=== PATIENT | female | born 1970 | race Asian ===

== ENCOUNTER 2025-02-02 16:36 | Emergency (ER) | payer BC, SELFPAY ==
--- NOTE | ~2025-02-02 | CT_ITS ---
EXAMINATION: CT brain wo con DATE: 02/02/2025 18:03 INDICATION: headache and vertigo . TECHNIQUE: Computed tomography (CT) of the head was performed without intravenous contrast. The mA wa s adjusted according to patient size. Iterative reconstruction technique was employed. The dose-lengt h product was 605.33 mGy-cm. COMPARISON: None. FINDINGS: No acute intracranial hemorrhage or extra-axial fluid collection. No hydrocephalus, mass, or herniation. No acute ischemic infarct. Unremarkable dural venous sinus attenuation. No acute osseous abnormality. The aerated spaces are clear. IMPRESSION: No acute intracranial process. Reviewed, dictated and finalized at location K.
[2025-02-02 16:41] VITALS: BP 135/86; PULSE 72; RESP 16; TEMP 36.6; O2SAT 100
[2025-02-02 16:59] VITALS: BP 119/81; PULSE 59; RESP 17; TEMP 36.4; O2SAT 98
[2025-02-02 17:02] VITALS: PULSE 65
--- NOTE | 2025-02-02 17:05 | ECG_ITS ---
Test Date: 2025-02-02 17:27:17 Measurements Intervals [place] Rate: 55 P: 31 VT: 150 QRS: 12 QRSD: 90 T: 11 QT: 404 QTc: 389 Interpretive Statements SINUS BRADYCARDIA No previous ECG available for comparison Electronically Signed On 02-03-2025 10:49:24 CDT by Moe Casillas M.D.
[2025-02-02 17:14] LABS: Hematocrit 42.4 % (37.0-47.0); Hemoglobin 14.2 g/dL (12.0-15.0); Immature Granulocyte Percent A 0.3 % (0-0.5); Lymphocytes Absolute Auto 1.95 K/mm3 (0.9-3.2); Mean Corpuscular HGB Conc 33.5 g/dl (32-36); Mean Corpuscular Hemoglobin 31.8 pg (26-34); Mean Corpuscular Volume 95.1 fl (80-100); Nucleated Red Blood Cells Absolute Auto 0.000 K/mm3 (0.0-0.012); Nucleated Red Blood Cells Perc 0.0 % (0.0-0.2); Platelet Count Result 257 k/mm3 (150-375); Red Blood Count 4.46 M/mm3 (4.2-5.4); White Blood Count 6.8 K/mm3 (4.5-10.0)
[2025-02-02 17:22] LABS: Alanine Aminotransferase 17 U/L (6-35); Albumin Level 4.6 g/dL (3.5-5.1); Alkaline Phosphatase 66 U/L (38-126); Anion Gap 8 mmol/L (4-12); Aspartate Amino Transferase 30 U/L (14-36); Bilirubin,Total 0.4 mg/dL (0.2-1.3); Blood Urea Nitrogen 12 mg/dL (7-17); Calcium 9.5 mg/dL (8.4-10.2); Carbon Dioxide 24 mmol/L (22-30); Chloride 103 mmol/L (98-107); Estimated CRCL calculation 66 ml/min; Estimated Glomerular Filt Rate > 60; Glucose 115 mg/dL (65-110); Potassium 3.8 mmol/L (3.4-5.0); Sodium 135 mmol/L (137-145); Total Protein 8.8 g/dL (6.3-8.2)
--- OUTSIDE RECORDS SUMMARY | 2025-02-02 17:24 | XMS_ITS | Clinical Summary ---
Author Organization [facility] [address] [address] Care Team Providers Care Avian Keeper Name Role Phone Unknown, Notinfile Primary Care Provider Unavail able Allergies Active Allergy Reactions Criticality Noted Date Comments Triamcinolone Acetonide Rash Medium 11/09/2021 Medications cyclobenzaprine (FLEXERIL) 5 mg tabletIndications :Cervical radiculopathy Take 1 tablet (5 mg total) by mouth 3 (three) times a day as needed for muscle spasms for up to 5 days 15 tablet Active Additional Information Patient not taking.Reported on 02/01/2025 Active Problems No known active problems Encounters Date Type Department Care Team Description 02/01/2025 3:00 PM CDT Office Visit [facility] Care at [address] [address] Isamar Petit NP Dizziness (Primary Dx); Pressure in head from Last 3 Months Social History Tobacco Use Types Packs/Day Years Used Date Smoking Tobacco: Never Assessed Comments Unknown Sex and Gender Information Value Date Recorded Sex Assigned at Not on file 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 Gender Identity Not on file Sexual Orientation Not on file Obstetrics History Last Filed Vital Signs Vital Sign Reading Time Taken Comments Blood Pressure 117/79 02/01/2025 2:49 PM CDT Pulse 74 02/01/2025 2:49 PM CDT Temperature 36.3 C (97.4 F) 02/01/2025 2:49 PM CDT Respiratory Rate 12 02/01/2025 2:49 PM CDT Oxygen Saturation 97% 02/01/2025 2:49 PM CDT Inhaled Oxygen Concentration - - Weight 62.6 kg (138 lb) 02/01/2025 2:49 PM CDT Height - - Body Mass Index - - Plan of Treatment Health Maintenance Due Date Last Done Comments Breast Cancer Screening-Mammogram 1968 Cervical Cancer Screening 1968 Colon Cancer Screening-Colonoscopy 1968 Depression Screening 1968 Hepatitis C Screening 1968 Hepatitis B Screening 1986 Regular Well Visit/Exam 18-64 1986 Influenza Vaccine (#1) 2025 , 04/28/2023, 05/20/2022, Additional history exists DTaP/Tdap/Td Vaccine (3 - Td or Tdap) 04/18/2029 04/18/2019, 02/23/2009 Zoster Vaccine Completed 02/18/2019, 11/14, 03/24/2016 Covid-19 Vaccine Completed 04/15/2024, , 04/03/2022, Additional history exists Pneumococcal vaccine <65 Aged Out No longer eligible based on patient's age to complete this topic Insurance [facility] ACCESS CHOICE Care Teams Avian Keeper Relationship Specialty Start Date End Date Unknown, Notinfile PCP - General 09/13/24
--- OUTSIDE RECORDS SUMMARY | 2025-02-02 17:25 | XMS_ITS | Encounter Summary ---
Author Organization [facility] Healthcare Address [address] [place] [id number] Care Team Providers Care Production Inspector Name Role Phone Unknown, Notinfile Primary Care Provider Unavail able Reason for Referral * Consultation (Urgent) - Pending Review Specialty Diagnoses / Procedures Referred By Pascale padilla Referred To Contact Family Medicine Diagnoses Dizziness Pressure in head Isamar Petit NP [address] [place] [address] [address] [place] [address] Phone: tel: fax: [facility] Referral ID Status Reason Start Date Expiration Date Visits Requested Visits Authorized [id number] Pending Review Specialty Services Required 02/01/2025 03/03/2026 1 1 Question Answer Please select the performing region: [facility] [[id number]] # of visits: 1 Reason for Visit * Reason Comments Dizziness Encounter Details Date Type Department Care Team (Late Contact Info) Description 02/01/2025 3:00 PM CDT Office Visit [facility] Medical [facility]venient Care at [address] [address] Isamar Petit NP [address] [address] Dizziness (Primary Dx); Pressure in head Social History Tobacco Use Types Packs/Day Years Used Date Smoking Tobacco: Never Assessed Comments Unknown Sex and Gender Information Value Date Recorded Sex Assigned at Not on file 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 Gender Identity Not on file Sexual Orientation Not on file documented as of this encounter Last Filed Vital Signs Vital Sign Reading [...] - - Body Mass Index - - documented in this encounter Plan of Treatment Scheduled Referrals Name Type Priority Associated Diagnoses Order Schedule Ambulatory referral to Family Practice Outpatient Referral Urgent Dizziness Pressure in head 1 Occurrences starting 02/01/2025 until 02/01/2026 documented as of this encounter Visit Diagnoses Diagnosis Dizziness- Primary Dizziness and giddiness Pressure in head documented in this encounter Care Teams Production Inspector Relationship Specialty Start Date End Date Unknown, Notinfile PCP - General 09/13/24 documented as of this encounter
--- OUTSIDE RECORDS SUMMARY | 2025-02-02 17:25 | XMS_ITS | Clinical Summary ---
Author Organization [facility] Health Address [address] [place] [address] Care Team Providers Care Buffer Inflated Pad Name Role Phone Unavailable Primary Care Provider Unavailabl e Social History Tobacco Use Types Packs/Day Years Used Date Smoking Tobacco: Never Assessed Comments Unknown Sex and Gender Information Value Date Recorded Sex Assigned at Not on file Legal Sex Unknown 08/08/2019 9:50 AM PST Gender Identity Not on file Sexual Orientation Not on file Plan of Treatment Not on file
--- OUTSIDE RECORDS SUMMARY | 2025-02-02 17:25 | XMS_ITS | Referral Summary ---
Author Organization [facility] [address] [place] Address [address] [place] [address] Care Team Providers Care Ocean Rescue Lieutenant Name Role Phone Unknown, Notinfile Primary Care Provider Unavail able Encounters Date Type Department Care Team Description 02/01/2025 3:00 PM CDT Office Visit [facility] Convenient Care at [address] [address] Isamar Petit NP Dizziness (Primary Dx); Pressure in head from Last 3 Months Allergies Active Allergy Reactions Criticality Noted Date Comments Triamcinolone Acetonide Rash Medium 11/09/2021 Medications cyclobenzaprine (FLEXERIL) 5 mg tabletIndications :Cervical radiculopathy Take 1 tablet (5 mg total) by mouth 3 (three) times a day as needed for muscle spasms for up to 5 days 15 tablet Active Additional Information Patient not taking.Reported on 02/01/2025 Active Problems No known active problems Social History Tobacco Use Types Packs/Day Years Used Date Smoking Tobacco: Never Assessed Comments Unknown Sex and Gender Information Value Date Recorded Sex Assigned at Not on file 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
--- OUTSIDE RECORDS SUMMARY | 2025-02-02 17:25 | XMS_ITS | Encounter Summary ---
Author Organization [facility] Health Address [address] [place] [address] Care Team Providers Care Polishing Pad Mounter Name Role Phone Unavailable Primary Care Provider Unavailabl e Prior Encounters Date Type Department Care Team Description 08/05/2019 Converted 13x Documents [facility] [place] [facility] [address] [address], [facility] [address] [place] [address] <No scans attached> 08/05/2019 Converted CPS Chart Documents [facility] [address] [place] [phone] <No scans attached> 08/05/2019 Converted CPS Chart Documents [place] [facility] [id number] [facility], [facility] [address] [place] [address] <No scans attached> 08/05/2019 Converted 13x Documents [facility] [address], [address] [place] [phone] <No scans attached> 08/05/2019 Converted 13x Documents [facility] [address] [facility], [facility] [address] [place] [address] <No scans attached> Plan of Treatment Not on file Procedures Procedure Name Priority Date/Time Associated Diagnosis Comments CANCELLED APPOINTMENT Routine 12/05/2017 12:00 AM PDT CANCELLED APPOINTMENT Routine 12/05/2017 12:00 AM PDT BITEWING - SINGLE RADIOGRAPHIC IMAGE Routine 07/24/2017 12:00 AM PST 18 RECEMENT CROWN Routine 07/18/2017 12: 00 AM PST 18 LIMITED ORAL EVALUATION - PROBLEM FOCUSED Routine 07/18/2017 12:00 AM PST PERIO MAINTENANCE Routine 06/12/2017 12: 00 AM PST 1 FM IRR W/PERIO MAINT Routine 7 12:00 AM PST PERIODIC ORAL EVALUATION - ESTABLISHED PATIENT Routine 06/06/2017 12:00 AM PST BITEWINGS - FOUR RADIOGRAPHIC IMAGES Routine 06/06/2017 12:00 AM PST ADDITIONAL X-RAY Routine 06/06/2017 12:0 0 AM PST ADDITIONAL X-RAY Routine 06/06/2017 12:0 0 AM PST ADDITIONAL X-RAY Routine 06/06/2017 12:0 0 AM PST ADDITIONAL X-RAY Routine 06/06/2017 12:0 0 AM PST ADDITIONAL X-RAY Routine 06/06/2017 12:0 0 AM PST SINGLE X-RAY Routine 06/06/2017 12:00 AM PST PERIO MAINTENANCE Routine 10/28/2016 12: 00 AM PDT ORAL HYGIENE INSTRUCTIONS Routine 2016 12:00 AM PDT 1 FM IRR W/PERIO MAINT Routine 7 12:00 AM PDT PERIODIC ORAL EVALUATION - ESTABLISHED PATIENT Routine 10/28/2016 12:00 AM PDT BITEWINGS - FOUR RADIOGRAPHIC IMAGES Routine 10/28/2016 12:00 AM PDT ADDITIONAL X-RAY Routine 10/28/2016 12:0 0 AM PDT ADDITIONAL X-RAY Routine 10/28/2016 12:0 0 AM PDT ADDITIONAL X-RAY Routine 10/28/2016 12:0 0 AM PDT ADDITIONAL X-RAY Routine 10/28/2016 12:0 0 AM PDT ADDITIONAL X-RAY Routine 10/28/2016 12:0 0 AM PDT SINGLE X-RAY Routine 10/28/2016 12:00 AM PDT BITEWINGS - FOUR RADIOGRAPHIC IMAGES Routine 06/17/2016 12:00 AM PST ADDITIONAL X-RAY Routine 06/17/2016 12:0 0 AM PST ADDITIONAL X-RAY Routine 06/17/2016 12:0 0 AM PST ADDITIONAL X-RAY Routine 06/17/2016 12:0 0 AM PST ADDITIONAL X-RAY Routine 06/17/2016 12:0 0 AM PST SINGLE X-RAY Routine 06/17/2016 12:00 AM PST INTRAORAL PHOTO Routine 06/17/2016 12:00 AM PST INTRAORAL PHOTO Routine 06/17/2016 12:00 AM PST 19 RECEMENT CROWN Routine 06/03/2016 12: 00 AM PST SINGLE X-RAY Routine 06/03/2016 12:00 AM PST 19 CEMENT CROWN Routine 05/31/2016 12:00 AM PST 19 CORE BUILDUP, INCLUDING ANY PINS WHEN REQUIRED Routine 05/13/2016 12:00 AM PDT 19 [facility] MADE CROWN POST Routine 05/13/2016 12:00 AM PDT PERIO MAINTENANCE Routine 04/19/2016 12: 00 AM PDT ORAL HYGIENE INSTRUCTIONS Routine 2015 12:00 AM PDT 1 FRANCISCO JAVIER DECON Routine 04/19/2016 12:00 AM PDT 1 FM IRR W/PERIO MAINT Routine 6 12:00 AM PDT PERIODIC ORAL EVALUATION - ESTABLISHED PATIENT Routine 04/12/2016 12:00 AM PDT PERIODIC ORAL EVALUATION - ESTABLISHED PATIENT Routine 06/30/2015 12:00 AM PST BITEWINGS - FOUR RADIOGRAPHIC IMAGES Routine 06/30/2015 12:00 AM PST ADDITIONAL X-RAY Routine 06/30/2015 12:0 0 AM PST ADDITIONAL X-RAY Routine 06/30/2015 12:0 0 AM PST ADDITIONAL X-RAY Routine 06/30/2015 12:0 0 AM PST ADDITIONAL X-RAY Routine 06/30/2015 12:0 0 AM PST ADDITIONAL X-RAY Routine 06/30/2015 12:0 0 AM PST SINGLE X-RAY Routine 06/30/2015 12:00 AM PST PERIO MAINTENANCE Routine 05/13/2015 12: 00 AM PDT ORAL HYGIENE INSTRUCTIONS Routine 2014 12:00 AM PDT 1 FM IRR W/PERIO MAINT Routine 5 12:00 AM PDT UR PERIODONTAL SCALING AND ROOT PLANING - FOUR OR MORE TEETH PER QUADRANT Routine 12/17/2014 12:00 AM PDT UL PERIODONTAL SCALING AND ROOT PLANING - FOUR OR MORE TEETH PER QUADRANT Routine 12/17/2014 12:00 AM PDT LR PERIODONTAL SCALING AND ROOT PLANING - FOUR OR MORE TEETH PER QUADRANT Routine 12/17/2014 12:00 AM PDT LL PERIODONTAL SCALING AND ROOT PLANING - FOUR OR MORE TEETH PER QUADRANT Routine 12/17/2014 12:00 AM PDT ORAL HYGIENE INSTRUCTIONS Routine 2014 12:00 AM PDT LR FRANCISCO JAVIER DECON/QD Routine 12/17/2014 12:00 AM PDT LL FRANCISCO JAVIER DECON/QD Routine 12/17/2014 12:00 AM PDT UL FRANCISCO JAVIER DECON/QD Routine 12/17/2014 12:00 AM PDT UR FRANCISCO JAVIER DECON/QD Routine 12/17/2014 12:00 AM PDT UR ANTIBACT IRR/QUAD Routine 12/17/2014 12:00 AM PDT UL ANTIBACT IRR/QUAD Routine 12/17/2014 12:00 AM PDT LR ANTIBACT IRR/QUAD Routine 12/17/2014 12:00 AM PDT LL ANTIBACT IRR/QUAD Routine 12/17/2014 12:00 AM PDT 31 CROWN - FULL CAST PREDOMINANTLY BASE METAL Routine 12/16/2014 12:00 AM PDT 30 CROWN - FULL CAST PREDOMINANTLY BASE METAL Routine 12/16/2014 12:00 AM PDT 3 O AMALGAM 1 SURFACE Routine 12/16/2014 12:00 AM PDT 18 [facility] MADE CROWN POST Routine 12/16/2014 12:00 AM PDT 15 [facility] MADE CROWN POST Routine 12/16/2014 12:00 AM PDT 14 [facility] MADE CROWN POST Routine 12/16/2014 12:00 AM PDT 2 [facility] MADE CROWN POST Routine 12/16/2014 12:00 AM PDT 30 ENDODONTIC THERAPY, MOLAR TOOTH (EXCLUDING FINAL CAODAISM) Routine 12/16/2014 12:00 AM PDT 31 CERECFIRED CROWNPOST Routine 12/17/19 15 12:00 AM PDT 30 CERECFIRED CROWNPOST Routine 12/17/19 15 12:00 AM PDT 31 CEREC CROWN POST Routine 12/16/2014 1 2:00 AM PDT 30 CEREC CROWN POST Routine 12/16/2014 1 2:00 AM PDT 31 CROWN PFG POST Routine 12/16/2014 12: 00 AM PDT 30 CROWN PFG POST Routine 12/16/2014 12: 00 AM PDT 31 CROWN PFM POST Routine 12/16/2014 12: 00 AM PDT 30 CROWN PFM POST Routine 12/16/2014 12: 00 AM PDT INTRAORAL - COMPREHENSIVE SERIES OF RADIOGRAPHIC IMAGES Routine 12/16/2014 12:00 AM PDT INTRAORAL PHOTO Routine 12/16/2014 12:00 AM PDT INTRAORAL PHOTO Routine 12/16/2014 12:00 AM PDT INTRAORAL PHOTO Routine 12/16/2014 12:00 AM PDT INTRAORAL PHOTO Routine 12/16/2014 12:00 AM PDT 31 CEMENT CROWN Routine 06/22/2012 12:00 AM PST 30 CEMENT CROWN Routine 06/22/2012 12:00 AM PST ORAL HYGIENE INSTRUCTIONS Routine 2011 12:00 AM PST PROPHYLAXIS - ADULT Routine 06/22/2012 1 2:00 AM PST NC X-RAY Routine 06/22/2012 12:00 AM PST 31 CERECFIRED CROWNPOST Routine 06/19/20 12 12:00 AM PST 30 CERECFIRED CROWNPOST Routine 06/19/20 12 12:00 AM PST CANCELLED APPOINTMENT Routine 02/22/2012 12:00 AM PDT CANCELLED APPOINTMENT Routine 09/07/2011 12:00 AM PST OCCLUSAL GUARD SOFT APPLIANCE, FULL ARCH Routine 06/30/2011 12:00 AM PST PROPHYLAXIS - ADULT Routine 06/30/2011 1 2:00 AM PST PERIODIC ORAL EVALUATION - ESTABLISHED PATIENT Routine 06/30/2011 12:00 AM PST PROPHYLAXIS - ADULT Routine 12/08/2010 1 2:00 AM PDT PERIODIC ORAL EVALUATION - ESTABLISHED PATIENT Routine 12/08/2010 12:00 AM PDT BITEWINGS - FOUR RADIOGRAPHIC IMAGES Routine 12/08/2010 12:00 AM PDT ADDITIONAL X-RAY Routine 12/08/2010 12:0 0 AM PDT ADDITIONAL X-RAY Routine 12/08/2010 12:0 0 AM PDT ADDITIONAL X-RAY Routine 12/08/2010 12:0 0 AM PDT SINGLE X-RAY Routine 12/08/2010 12:00 AM PDT INTRAORAL PHOTO Routine 12/08/2010 12:00 AM PDT PLAN VISIT FEE Routine 12/03/2010 12:00 AM PDT NC X-RAY Routine 10/27/2010 12:00 AM PDT 18 CEMENT CROWN Routine 10/27/2010 12:00 AM PDT 15 CEMENT CROWN Routine 10/27/2010 12:00 AM PDT 14 CEMENT CROWN Routine 10/27/2010 12:00 AM PDT 2 CEMENT CROWN Routine 10/27/2010 12:00 AM PDT BITEWINGS - TWO RADIOGRAPHIC IMAGES Routine 10/27/2010 12:00 AM PDT 18 ZIR[facility] LAB MADE CROWN POST Routine 10/08/2010 12:00 AM PDT 15 ZIR[facility] LAB MADE CROWN POST Routine 10/08/2010 12:00 AM PDT 14 [facility] MADE CROWN POST Routine 10/08/2010 12:00 AM PDT 2 [facility] MADE CROWN POST Routine 10/08/2010 12:00 AM PDT 19 O COMPOSITE FILLING Routine 1 12:00 AM PDT PROPHYLAXIS - ADULT Routine 03/17/2010 1 2:00 AM PDT PERIODIC ORAL EVALUATION - ESTABLISHED PATIENT Routine 03/17/2010 12:00 AM PDT BITEWINGS - FOUR RADIOGRAPHIC IMAGES Routine 03/17/2010 12:00 AM PDT ADDITIONAL X-RAY Routine 03/17/2010 12:0 0 AM PDT ADDITIONAL X-RAY Routine 03/17/2010 12:0 0 AM PDT ADDITIONAL X-RAY Routine 03/17/2010 12:0 0 AM PDT ADDITIONAL X-RAY Routine 03/17/2010 12:0 0 AM PDT ADDITIONAL X-RAY Routine 03/17/2010 12:0 0 AM PDT SINGLE X-RAY Routine 03/17/2010 12:00 AM PDT 19 O AMALGAM 1 SURFACE Routine 12:00 AM PST 3 O AMALGAM 1 SURFACE Routine 06/04/2009 12:00 AM PST 2 O AMALGAM 1 SURFACE Routine 06/04/2009 12:00 AM PST 30 ENDODONTIC THERAPY, MOLAR TOOTH (EXCLUDING FINAL CAODAISM) Routine 06/04/2009 12:00 AM PST 31 CROWN PFM POST Routine 06/04/2009 12: 00 AM PST 30 CROWN PFM POST Routine 06/04/2009 12: 00 AM PST 18 CROWN PFM POST Routine 06/04/2009 12: 00 AM PST 14 CROWN PFM POST Routine 06/04/2009 12: 00 AM PST COMPREHENSIVE ORAL EVALUATION - NEW OR ESTABLISHED PATIENT Routine 06/04/2009 12:00 AM PST UR PERIODONTAL SCALING AND ROOT PLANING - FOUR OR MORE TEETH PER QUADRANT Routine 06/04/2009 12:00 AM PST UL PERIODONTAL SCALING AND ROOT PLANING - FOUR OR MORE TEETH PER QUADRANT Routine 06/04/2009 12:00 AM PST LR PERIODONTAL SCALING AND ROOT PLANING - FOUR OR MORE TEETH PER QUADRANT Routine 06/04/2009 12:00 AM PST LL PERIODONTAL SCALING AND ROOT PLANING - FOUR OR MORE TEETH PER QUADRANT Routine 06/04/2009 12:00 AM PST 30 M ARESTIN Routine 06/04/2009 12:00 AM PST 14 D ARESTIN Routine 06/04/2009 12:00 AM PST 12 D ARESTIN Routine 06/04/2009 12:00 AM PST 3 M ARESTIN Routine 06/04/2009 12:00 AM PST UR ANTIBACT IRR/QUAD Routine 06/04/2009 12:00 AM PST UL ANTIBACT IRR/QUAD Routine 06/04/2009 12:00 AM PST LR ANTIBACT IRR/QUAD Routine 06/04/2009 12:00 AM PST LL ANTIBACT IRR/QUAD Routine 06/04/2009 12:00 AM PST INTRAORAL - COMPREHENSIVE SERIES OF RADIOGRAPHIC IMAGES Routine 06/04/2009 12:00 AM PST INTRAORAL PHOTO Routine 06/04/2009 12:00 AM PST INTRAORAL PHOTO Routine 06/04/2009 12:00 AM PST INTRAORAL PHOTO Routine 06/04/2009 12:00 AM PST INTRAORAL PHOTO Routine 06/04/2009 12:00 AM PST 15 LO COMPOSITE FILLING Routine 06/04/20 12:00 AM PST MISSED APPOINTMENT Routine 05/04/2009 12 :00 AM PDT Visit Diagnoses Not on file
--- NOTE | 2025-02-02 17:46 | ED_ITS ---
HPI - General Adult General Chief complaint: Dizziness Stated complaint: Dizziness,SANTANA Time Seen by Provider: 02/02/25 16:54 History of Present Illness HPI narrative: 54-year-old female presents to the emergency department for evaluation dizziness over last 24 hours. Patient reports the dizziness is worsened when she is up and moving. Patient denies any falls or injuries. Patient denies any coughs colds fevers or sinus congestion. Patient does have so she did headache. Patient is training for a marathon and has been running approximately 12 miles a day. Patient is not on any blood thinners. Related Data Allergies Allergy/AdvReac Type Severity Reaction Status Date / Time triamcinolone (From [facility]) Allergy Rash Verified 02/02/25 17:04 Review of Systems 2 Review of Systems: All systems reviewed & are unremarkable except as noted in HPI and below Exam 2 Narrative: APPEARANCE: Well appearing, no pain, no distress, well-nourished. HEAD: normocephalic, atraumatic. EYES: PERRLA/EOMI, conjunctivae clear. NOSE: Normal no drainage EARS: Left TM erythema THROAT: Pharynx clear, no exudate. NECK: Supple. No adenopathy, no masses. RESPIRATORY: Airway patent, respirations nonlabored. Clear to auscultation bilaterally, no rales, rhonchi, wheezing. CARDIOVASCULAR: Regular rate and rhythm without murmurs rubs or gallops. ABDOMINAL: Soft, nontender, nondistended, normal bowel sounds MUSCULOSKELETAL: Moves all extremities. Strength/ROM intact, No edema, No calf tenderness. NEURO: Alert. Cranial nerves II through XII intact. Good gait. Good coordination SKIN: Warm, dry. Normal Color Course Vital Signs Vital signs: Vital Signs Temperature 97.9 F 02/02/25 16:41 Pulse Rate 72 02/02/25 16:41 Respiratory Rate 16 02/02/25 16:41 Blood Pressure 135/86 02/02/25 16:41 Pulse Oximetry 100 02/02/25 16:41 Oxygen Delivery Room Air 02/02/25 16:41 Temperature 97.6 F 02/02/25 16:59 Pulse Rate 67 02/02/25 18:36 Respiratory Rate 16 02/02/25 18:36 Blood Pressure 118/79 02/02/25 18:36 Pulse Oximetry 100 02/02/25 18:36 Oxygen Delivery Room Air 02/02/25 16:59 Medical Decision Making MDM Narrative Medical decision making narrative: 54-year-old female presents emergency department for evaluation for vertigo. Patient did feel improved with treatment with IV fluids, Compazine, Toradol, meclizine. Patient's head CT was negative. Suspect vertigo secondary to left TM effusion. Patient was provided meclizine for symptom control. Patient was encouraged close follow-up with her primary care physician. Differential Diagnosis Differential Diagnosis: Vertigo, cervical abdominal, subarachnoid hemorrhage, vascular injury, otitis media Vital Signs Vital Signs: Vital Signs Temperature 97.9 F 02/02/25 16:41 Pulse Rate 72 02/02/25 16:41 Respiratory Rate 16 02/02/25 16:41 Blood Pressure 135/86 02/02/25 16:41 Pulse Oximetry 100 02/02/25 16:41 Oxygen Delivery Room Air 02/02/25 16:41 Temperature 97.6 F 02/02/25 16:59 Pulse Rate 67 02/02/25 18:36 Respiratory Rate 16 02/02/25 18:36 Blood Pressure 118/79 02/02/25 18:36 Pulse Oximetry 100 02/02/25 18:36 Oxygen Delivery Room Air 02/02/25 16:59 Lab Data 02/02/25 17:07 02/02/25 17:07 Labs: Lab Results 02/02/25 Range/Units 17:07 WBC 6.8 (4.5-10.0) K/mm3 RBC 4.46 (4.2-5.4) M/mm3 Hgb 14.2 (12.0-15.0) g/dL Hct 42.4 (37.0-47.0) % MCV 95.1 (80-100) fl MCH 31.8 (26-34) pg MCHC 33.5 (32-36) g/dl RDW 12.6 (11.5-14.5) % Plt Count 257 (150-375) k/mm3 MPV 9.2 (7.4-10.4) fl Immature Gran % (Auto) 0.3 (0-0.5) % Neut % (Auto) 61.8 (45.5-73.1) % Lymph % (Auto) 28.9 (18.3-44.2) % [place] % (Auto) 7.3 (2.6-8.5) % Eos % (Auto) 1.3 (0-4.4) % Baso % (Auto) 0.4 (0.2-1.2) % Lymph # (Auto) 1.95 (0.9-3.2) K/mm3 [place] # (Auto) 0.5 (0.1-0.6) K/mm3 Eos # (Auto) 0.1 (0-0.3) K/mm3 Baso # (Auto) 0.0 (0.0-0.1) K/mm3 Abs Immat Gran (auto) 0.02 (0.00-0.031) K/mm3 Absolute Neuts (auto) 4.2 (1.3-6.7) K/mm3 Absolute Nucleated RBC 0.000 (0.0-0.012) K/mm3 Nucleated RBC % 0.0 (0.0-0.2) % Sodium 135 L (137-145) mmol/L Potassium 3.8 (3.4-5.0) mmol/L Chloride 103 (98-107) mmol/L Carbon Dioxide 24 (22-30) mmol/L Anion Gap 8 (4-12) mmol/L BUN 12 (7-17) mg/dL Creatinine 0.70 (0.7-1.0) mg/dL Estim Creat Clear Calc 66 ml/min Estimated GFR > 60 (59 - ) Glucose 115 H (65-110) mg/dL Calcium 9.5 (8.4-10.2) mg/dL Total Bilirubin 0.4 (0.2-1.3) mg/dL AST 30 (14-36) U/L ALT 17 (6-35) U/L Alkaline Phosphatase 66 (38-126) U/L Total Protein 8.8 H (6.3-8.2) g/dL Albumin 4.6 (3.5-5.1) g/dL Imaging Data Radiologist's impression: Impressions Head CT 02/02/25 18:11 IMPRESSION: No acute intracranial process. Discharge Plan Discharge Clinical Impression: Vertigo Patient Disposition: Home Condition: Stable Instructions: Antibiotic Form, Vertigo (ED) Additional Instructions: Meclizine as needed for vertigo control. Have close follow-up with your primary care physician. If you have any worsening symptoms then please call or return to the emergency department. Patient Language: Frisian Prescriptions: New meclizine 25 mg tablet 25 mg PO BID PRN (Reason: dizziness) 7 Days Qty: 14 0RF Follow-up/Referrals: PHYSICIAN,MICROFABRICATION ENGINEER MANAGER [Primary Care Provider] -
[2025-02-02] MEDS: MECLIZINE HCL 25 MG TABLET PO (17:49)
[2025-02-02] MEDS: PROCHLORPERAZINE EDISYLATE 10 MG/2 ML VIAL IV PUSH (17:49)
[2025-02-02] MEDS: SODIUM CHLORIDE 0.9% IV 1,000 ML 999 ML IV CONT (17:49)
[2025-02-02 18:36] VITALS: BP 118/79; PULSE 67; RESP 16; O2SAT 100
[2025-02-02] MEDS: KETOROLAC 15 MG/ML VIAL (*BKC) IV PUSH (18:38)
== END 2025-02-02 19:44 | disposition home or self-care (01) ==
PROVIDERS: Emergency Provider Emergency Medicine
DX: R42 Dizziness and giddiness (principal); R00.1 Bradycardia, unspecified
CPT/HCPCS: 36415; 70450; 80053; 85025; 93005; 96361; 96374; 96375; 99284; A9270; J0780; J1885; J7030